=== PATIENT | male | born 1995 | race Caucasian/White ===

== ENCOUNTER 2016-11-18 14:27 | Emergency (ER) | payer OTHER ==
[~2016-11-18] VITALS: Ht 180.3 cm; Wt 70.0 kg
[2016-11-18 14:30] VITALS: TEMP 36.9; Ht 180.3 cm; Wt 70.0 kg
--- NOTE | 2016-11-18 15:12 | DIAGNOSTIC IMAGING REPORT ---
RIGHT KNEE 3 VIEWS CLINICAL HISTORY: Right knee pain following twisting injury. COMPARISON: None FINDINGS: Alignment of the right knee is anatomic. No acute fracture is identified. There is a moderate size right knee joint effusion. IMPRESSION: 1. No acute fracture. 2. Moderate size right knee joint effusion. Electronically signed by: Hermann Garcia M.D. 11/18/2016 3:10 PM Dictated Date/Time: 11/18/2016 3:08 PM
--- NOTE | 2016-11-18 15:55 | EMERGENCY ROOM VISIT NOTE ---
ED Visit Note First contact with patient: 14:36 CHIEF COMPLAINT: knee pain HISTORY OF PRESENT ILLNESS: This 21-year-old male patient presents to the emergency department ambulatory complaining of right knee pain. The patient states that he was playing basketball yesterday and was hit by another player in his right leg got caught. He is unsure exactly how he injured the knee. He rates his discomfort a 7/10 and states that he has had difficulty walking due to the pain. The patient denies any other injuries besides their knee. The patient denies swelling or bruising. There is pain with flexion of the knee. They rate the pain as sharp and 7/10. No numbness or tingling. No previous injuries to this knee. No ankle, foot or hip pain. REVIEW OF SYSTEMS: A 6 system review of systems was completed with positives and pertinent negatives listed in the HPI. ALLERGIES: No known drug allergies MEDICATIONS: No chronic medications PMH: No significant past medical history. SOCIAL HISTORY: The patient lives locally with family. PHYSICAL EXAM: Vital Signs: Reviewed Nurse's notes, vital signs stable. GENERAL : This is a 21-year-old male, no acute distress, but appears in pain, well- developed, well-nourished. MENTAL STATUS: Alert, oriented to person place and time, and cooperative. MUSCULOSKELETAL: The right knee is not swollen. There is no ecchymosis. No significant tenderness to palpation. There is no joint line tenderness. There is pain with flexion of the knee. The patella does not subluxate. Range of motion is full. Strength of the quads and hamstrings is 5/ 5. Romi's is negative. Deon's and Anterior Drawer tests are negative. There is no laxity with varus and valgus stressing. The foot and toes are warm and well-perfused. Dorsalis pedis pulse 2+. Sensation to pain and light touch is intact. Capillary refill less than 2 seconds. EMERGENCY DEPARTMENT COURSE: I examined the patient. X-rays of the right knee were reviewed by myself and read by radiology and reveal a moderate knee effusion. The patient was placed in a knee immobilizer under my direction and the position was satisfactory. The patient was instructed on the use of crutches. He was given information for orthopedic follow-up. He verbalized understanding of my assessment and treatment plan. The patient was discharged home in good condition. DIAGNOSIS: Right knee injury Current/Historical Medications No Active Prescriptions or Reported Meds Vital Signs Date Time Temp Pulse Resp B/P Pulse Ox O2 Delivery O2 Flow Rate FiO2 11/18/16 14:30 36.9 105 18 123/73 97 Room Air Departure Information Impression Primary Impression: Right knee injury Dispostion Home / Self-Care Condition GOOD Prescriptions No Active Prescriptions or Reported Meds Referrals No Doctor, Assigned (PCP) Prasanna Brower M.D. Patient Instructions My [facility] Additional Instructions You have been treated in the Emergency Department for Knee Pain. For pain control, you can use the following [id number] medicines (if >12 yo): - Regular strength (325mg/tab) Tylenol (acetaminophen) 2 tabs every 4-6 hours as needed. Do not exceed 12 tablets in a 24 hour period. Avoid taking more than 4 grams (4000 mg) of Tylenol per day. This includes any other sources of acetaminophen you may take on a regular basis. - Regular strength (200 mg/tab) Advil (ibuprofen) 1-2 tabs every 4-6 hours as needed. Do not exceed a dose of 3200 mg per day. If this is a recent injury (<24 hrs), ice can be applied to the area of pain for the first 3 days to help decrease pain and inflammation. Ice massages can be performed by freezing water in a paper cup, peeling back the cup to expose the ice and then massaging over the affected area. You have been provided the number for an Orthopaedic Surgeon. You should call this number as soon as possible to establish a follow-up visit from today's Emergency Department visit. Keep the knee brace in place until cleared by Orthopedics. Use the crutches you have been provided to keep ALL weight off of the knee until weight bearing is tolerable. Return to the Emergency Department if your current symptoms worsen despite treatment course outlined above. Problem Qualifiers Primary Impression: Right knee injury Encounter type: initial encounter Qualified Codes: S89.91XA - Unspecified injury of right lower leg, initial encounter
[2016-11-18 16:21] VITALS: BP 130/77; PULSE 84; O2SAT 96
== END 2016-11-18 16:24 | disposition home or self-care (01) ==
LOC: C.EDB 14:30 → C.EDD 16:24
DX: S89.91XA Unspecified injury of right lower leg, initial encounter (principal); W50.0XXA Accidental hit or strike by another person, initial encounter; Y93.67 Activity, basketball